=== PATIENT | male | born 1975 | race Two or more races ===

== ENCOUNTER 2024-07-20 08:50 | Emergency (ER) | payer SELFPAY ==
[~2024-07-20] VITALS: Ht 170.2 cm; Wt 77.5 kg
--- NOTE | 2024-07-20 09:29 | ED.PDOC ---
History of Present Illness HPI Comments 49-year-old male came to the ER stating that he has has redness with foreign sensation in his left eye. He states that he was working with metal when part of the metal went into his eyeball since then he is unable to wash it out. He came in today because the irritation has been getting worse. He does have good vision. Denies past medical surgical history. Denies any other symptoms. Chief Complaint: Eye Problem Time Seen by MD: 08:51 Primary Care Provider: NONE Reviewed Notes: Nurses Notes, Medications, Allergies Allergies: Coded Allergies: NO KNOWN ALLERGIES (Unverified , 07/20/24) Information Source: Patient Mode of Arrival: Ambulatory Severity: Mild Timing: Days Duration: Since onset Past Medical History PAST MEDICAL HISTORY: Denies Surgical History: Denies all surgeries Social History Smoker: Cigarettes Alcohol: Denies ETOH Use Drugs: Denies Drug Use Constitutional: denies: chills, diaphoresis, fatigue, fever, malaise, sweats, w eakness, others EENTM: reports: eye redness (l); denies: blurred vision, double vision, ear bleeding, ear discharge, ear drainage, ear pain, ear ringing, eye pain, hearing loss, mouth pain, mouth swelling, nasal discharge, nose bleeding, nose congestion, nose pain, photophobia, tearing, throat pain, throat swelling, voice changes, others Respiratory: denies: cough, hemoptysis, orthopnea, SOB at rest, shortness of breath, SOB with excertion, stridor, wheezing, others Cardiovascular: denies: chest pain, dizzy spells, diaphoresis, Dyspnea on exertion, edema, irregular heart beat, left arm pain, lightheadedness, palpitations, PND, syncope, others Gastrointestinal: denies: abdomen distended, abdominal pain, blood streaked bowels, constipated, diarrhea, dysphagia, difficulty swallowing, hematemesis, melena, nausea, poor appetite, poor fluid intake, rectal bleeding, rectal pain, vomiting, others Genitourinary: denies: burning, dysuria, flank pain, frequency, hematuria, incontinence, penile discharge, penile sore, pain, testicle pain, testicle swelling, urgency, others Neurological: denies: dizziness, fainting, headache, left sided numbness, left sided weakness, numbness, paresthesia, pre-existing deficit, right sided numbness, right sided weakness, seizure, speech problems, tingling, tremors, weakness, others Musculoskeletal: denies: back pain, gout, joint pain, joint swelling, muscle pain, muscle stiffness, neck pain, others Integumetry: denies: bruises, change in color, change in hair/nails, dryness, laceration, lesions, lumps, rash, wounds, others Allergic/Immunocompromised: denies: Difficulty Healing, Frequent Infections, Hives, Itching, others Hematologic/Lymphatic: denies: anemia, blood clots, easy bleeding, easy bruising, swollen glands, others Endocrine: denies: excessive hunger, excessive sweating, excessive thirst, excessive urination, flushing, intolerance to cold, intolerance to heat, unexplained weight gain, unexplained weight loss, others Psychiatric: denies: anxiety, bipolar disorder, depression, hopeless, panic disorder, schizophrenia, sleepless, suicidal, others Physical Exam General Appearance: Moderate Distress HEENT: Other (Left eye redness) Neck: Full Range of Motion, Non-Tender, Normal, Normal Inspection Respiratory: Chest Non-Tender, Lungs Clear, No Accessory Muscle Use, No Respiratory Distress, Normal Breath Sounds Cardiovascular: No Edema, No JVD, No Murmur, No Gallop, Normal Peripheral Pulses, Regular Rate/Rhythm Breast Exam: Deferred Gastrointestinal: No Organomegaly, Non Tender, No Pulsatile Mass, Normal Bowel Sounds, Soft Genitalia: Deferred Pelvic: Deferred Rectal: Deferred Extremities: No calf tenderness, Normal capillary refill, Normal inspection, Normal range of motion, Non-tender, No pedal edema Musculoskeletal : Apperance: Normal Neurologic: Alert, tariff expert II-XII nml as Tested, No Motor Deficits, Normal Affect, Normal Mood, No Sensory Deficits Cerebellar Function: Normal Reflexes: Normal Skin: Dry, Normal Color, Warm Lymphatic: No Adenopathy Was a procedure done? Was a procedure done?: No Differential Dx Considerations may include: Conjunctivitis Foreign body X-Ray, Labs, Meds, VS Vital Signs Date Time Temp Pulse Resp B/P (MAP) Pulse Ox O2 Delivery O2 Flow Rate FiO2 07/20/24 09:58 98.4 68 16 130/82 (98) 99 98.4 07/20/24 09:58 68 16 99 Room Air 07/20/24 09:00 98.2 70 17 139/78 (98) 98 Current Medications Medications (Trade) Dose Ordered Sig/Maren Route Start Time Stop Time Status Last Admin Fluorescein Sodium (Ful-Linda) 1 mg ONCE ONCE EACHEYE 07/20/24 09:45 07/20/24 09:46 DC 07/20/24 09:45 Time of 1ST Reevaluation: 09:28 Reevaluation 1ST: Unchanged Patient Education/Counseling: Diagnosis, Treatment, Prognosis, Need For Follow Up Family Education/Counseling: No Family Present Departure 1 Departure Time of Disposition: :28 Impression: Primary Impression: Foreign body Additional Impression: Conjunctivitis Qualified Codes: H10.32 - Unspecified acute conjunctivitis, left eye Disposition: HOME / SELF CARE / HOMELESS Condition: Good e-Prescriptions Gentamicin Sulfate (Gentamicin Sulfate) 0.3 % Mirlande 2 DROP LEFTEYE QID for 5 Days, #5 ML Prov: JASIEL ALTAMIRANO MD 07/20/24 Discharged With: Self Critical Care Note Critical Care Time?: Yes (45 min-critical care time only) Stability Stability form required: No Heart Score Heart Score: Heart Score Response (Comments) Value History N/A 0 EKG N/A 0 Age N/A 0 Risk Factors N/A 0 Troponin N/A 0 Total 0 JASIEL ALTAMIRANO MD Jul 20, 2024 09:29
[2024-07-20] MEDS: FLUORESCEIN SOD OPTH TEST STRIP EACHEYE ONE (09:45)
[2024-07-20] MEDS: TETRAHYDROZOLINE HCL 0.05% OPTH(EYE)SOL EACHEYE ONE (09:53)
[2024-07-20 09:58] VITALS: BP 130/82; PULSE 68; RESP 16; TEMP 98.4; O2SAT 99
[2024-07-20] MEDS ORDERED: GENT0.3S10 LEFTEYE (12:29)
== END 2024-07-20 12:34 | disposition home or self-care (01) ==
LOC: ER 08:50
DX: H57.8A2 Foreign body sensation, left eye (principal); H10.32 Unspecified acute conjunctivitis, left eye; F17.210 Nicotine dependence, cigarettes, uncomplicated